=== PATIENT | female | born 1995 | race Caucasian/White ===

== ENCOUNTER 2017-01-24 12:03 | Emergency (ER) | payer OTHER ==
[2017-01-24 12:10] VITALS: RESP 16; O2SAT 95
[2017-01-24 13:21] LABS: % IMMATURE GRANULYOCYTES 0.1 % (0.0-1.1); ABSOLUTE IMMATURE GRANULOCYTES 0.01 10^3/uL (0.00-0.10); ADD DIFF? NO; ADD MORPH? NO; ADD SCAN? NO; ATYPICAL LYMPHOCYTE FLAG 10 (0-99); FRAGMENT RBC FLAG 0 (0-99); HEMOGLOBIN 13.2 g/dL (12.6-16.3); LEFT SHIFT FLG 0 (0-99); LIPEMIA HEMOLYSIS FLAG 90 (0-99); MEAN CELL HEMOGLOBIN 28.1 pg (27.9-34.1); MEAN CELL HEMOGLOBIN CONCENTR. 33.8 g/dL (32.4-36.7); MEAN PLATELET VOLUME 8.2 fL (8.7-11.7); PLATELET CLUMPS FLAG 20 (0-99); PLATELET COUNT 368 10^3/uL (150-400); RED CELL DISTRIBUTION WIDTH 13.1 % (11.5-15.2)
--- NOTE | 2017-01-24 13:25 | EDPHY ---
H & P Stated Complaint: started menstruation monday/pelvic cramping/l sided pain Time Seen by Provider: 01/24/17 13:00 HPI/ROS: CHIEF COMPLAINT: Exacerbation of chronic left pelvic pain HISTORY OF PRESENT ILLNESS: The patient presents to the ED with an acute exacerbation of chronic left pelvic pain. The patient reports she has been doing with the symptoms intermittently for the past year. They are typically worsened with her menstrual cycle. She describes sharp left lower quadrant pain. It has been present for several days. She reports normal menstrual flow. The patient was seen in the emergency department approximately 1 year ago with similar symptoms. At that time she underwent a pelvic ultrasound which was unremarkable. The left ovary was not visualized. A CT scan of the abdomen pelvis was performed which demonstrated no evidence of acute pelvic pathology. The patient did have a follow-up ultrasound performed which again demonstrated no evidence of obvious pathology a nonvisualized left ovary. The patient states that the symptoms today are fairly typical however more severe. She denies any dysuria. She denies additional acute complaints. REVIEW OF SYSTEMS: A comprehensive 10 point review of systems is otherwise negative aside from elements mentioned in the history of present illness. Source: Patient Exam Limitations: No limitations - Personal History LMP (Females 10-55): Now Current Tetanus/Diphtheria Vaccine: Yes - Medical/Surgical History Hx Asthma: Yes Hx Chronic Respiratory Disease: No Hx Diabetes: No Hx Cardiac Disease: No Hx Renal Disease: No Hx Cirrhosis: No Hx Alcoholism: No Hx HIV/AIDS: No Hx Splenectomy or Spleen Trauma: No Other PMH: tonsillitis-2013, depression, anxiety, asthma, marijuana. - Social History Smoking Status: Former smoker - Physical Exam Exam: General Appearance: Alert, no distress Eyes: Pupils equal and round no pallor or injection ENT, Mouth: Mucous membranes moist Respiratory: There are no retractions, lungs are clear to auscultation Cardiovascular: Regular rate and rhythm Gastrointestinal: Tenderness to palpation left lower quadrant, no CVA tenderness, no peritoneal signs Pelvic: Expected menstrual flow noted from cervical os, no cervical lesions or vaginal trauma appreciated, tenderness to palpation noted in the left adnexal area without obvious mass. No cervical motion tenderness. Neurological: A&O, normal motor function, normal sensory exam, normal cranial nerves Skin: Warm and dry, no rashes Musculoskeletal: Neck is supple nontender Extremities: symmetrical, full range of motion Constitutional: Initial Vital Signs Temperature (C) 36.8 C 01/24/17 12:08 Heart Rate 86 01/24/17 12:08 Respiratory Rate 16 01/24/17 12:08 Blood Pressure 123/56 H 01/24/17 12:08 O2 Sat (%) 95 01/24/17 12:08 O2 Delivery Mode Room Air Allergies/Adverse Reactions: latex Allergy (Intermediate, Verified 01/24/17 12:06) Rash Penicillins Allergy (Intermediate, Verified 01/24/17 12:06) Rash Home Medications: Medication Instructions Recorded Lexapro 12/29/15 Ventolin Hfa Inhaler 12/29/15 Escitalopram Oxalate 01/24/17 Hydrocodone/APAP 5/325 [[place] 1 - 2 each PO Q6 PRN #20 tab 01/24/17 5/325] Dania 28 Tablet 01/24/17 Medical Decision Making - Diagnostics Imaging Results: Imaging Impressions Pelvic/Renal Ultrasound 01/24/17 13:27 Impression: 1. Normal-appearing uterus retroverted and anteflexed. 2. The left ovary could not be positively identified. No dominant mass is seen from transabdominal or endovaginal approach. 3. Normal-appearing right ovary. Findings discussed with Jose Pittman M.D. at 14:58 hour, 01/24/2017. ED Course/Re-evaluation: The patient presents to the ED with an acute exacerbation of left pelvic pain. The patient underwent pelvic examination by myself which demonstrates no findings consistent with PID or tubo-ovarian abscess. The patient did have GC and chlamydia testing performed on endocervical swab. The patient's pelvic ultrasound demonstrates no evidence of any obvious abnormality. She has a chronically nonvisualized left ovary. The patient's urinalysis demonstrates no evidence of an infection. Given the sum total the patient's presentation with intermittent left pelvic pain for over a year, my suspicion for an acute torsion is low. I do feel it is reasonable to have the patient attempt to manage her symptoms with ibuprofen and [place]. The patient will be advised to follow up with our on-call obgyn nurse doctor for a recheck in the next 1-2 days. Differential Diagnosis: Differential diagnosis considered includes ovarian cyst, ovarian torsion, PID, tubo-ovarian abscess, dysmenorrhea - Data Points Laboratory Results: Laboratory Results 01/24/17 13:05 01/24/17 13:05 01/24/17 01/24/17 01/24/17 13:05 13:05 13:05 WBC RBC Hgb Hct MCV MCH MCHC RDW Plt Count MPV Neut % (Auto) Lymph % (Auto) Riley % (Auto) Eos % (Auto) Baso % (Auto) Nucleat RBC Rel Count Absolute Neuts (auto) Absolute Lymphs (auto) Absolute Monos (auto) Absolute Eos (auto) Absolute Basos (auto) Absolute Nucleated RBC Immature Gran % Immature Gran # Sodium Potassium Chloride Carbon Dioxide Anion Gap BUN Creatinine Estimated GFR Glucose Calcium Beta HCG, Qual NEGATIVE Urine Color YELLOW Urine Appearance CLEAR Urine pH 6.0 (5.0-7.5) Ur Specific [place] 1.013 (1.002-1.030) Urine Protein NEGATIVE (NEGATIVE) Urine Ketones NEGATIVE (NEGATIVE) Urine Blood 3+ H (NEGATIVE) Urine Nitrate NEGATIVE (NEGATIVE) Urine Bilirubin NEGATIVE (NEGATIVE) Urine Urobilinogen NEGATIVE EU EU (0.2-1.0) Ur Leukocyte Esterase NEGATIVE (NEGATIVE) Urine RBC 50-182 /hpf H /hpf (0-3) Urine WBC 1-3 /hpf /hpf (0-3) Ur Epithelial Cells TRACE /lpf /lpf (NONE-1+) Urine Bacteria TRACE /hpf H /hpf (NONE SEEN) Urine Mucus TRACE /lpf /lpf (NONE-1+) Urine Glucose NEGATIVE (NEGATIVE) C.trachomatis RNA (TMA) Pending N.gonorrhoeae RNA (TMA) Pending 01/24/17 01/24/17 13:05 13:05 WBC 7.30 10^3/uL 10^3/uL (3.80-9.50) RBC 4.70 10^6/uL 10^6/uL (4.18-5.33) Hgb 13.2 g/dL g/dL (12.6-16.3) Hct 39.0 % % (38.0-47.0) MCV 83.0 fL fL (81.5-99.8) MCH 28.1 pg pg (27.9-34.1) MCHC 33.8 g/dL g/dL (32.4-36.7) RDW 13.1 % % (11.5-15.2) Plt Count 368 10^3/uL 10^3/uL (150-400) MPV 8.2 fL L fL (8.7-11.7) Neut % (Auto) 55.5 % % (39.3-74.2) Lymph % (Auto) 33.6 % % (15.0-45.0) Riley % (Auto) 7.0 % % (4.5-13.0) Eos % (Auto) 3.0 % % (0.6-7.6) Baso % (Auto) 0.8 % % (0.3-1.7) Nucleat RBC Rel Count 0.0 % % (0.0-0.2) Absolute Neuts (auto) 4.05 10^3/uL 10^3/uL (1.70-6.50) Absolute Lymphs (auto) 2.45 10^3/uL 10^3/uL (1.00-3.00) Absolute Monos (auto) 0.51 10^3/uL 10^3/uL (0.30-0.80) Absolute Eos (auto) 0.22 10^3/uL 10^3/uL (0.03-0.40) Absolute Basos (auto) 0.06 10^3/uL 10^3/uL (0.02-0.10) Absolute Nucleated RBC 0.00 10^3/uL 10^3/uL (0-0.01) Immature Gran % 0.1 % % (0.0-1.1) Immature Gran # 0.01 10^3/uL 10^3/uL (0.00-0.10) Sodium 135 mEq/L mEq/L (134-144) Potassium 4.4 mEq/L mEq/L (3.5-5.2) Chloride 104 mEq/L mEq/L (97-110) Carbon Dioxide 24 mEq/l mEq/l (22-31) Anion Gap 7 mEq/L L mEq/L (8-16) BUN 11 mg/dL mg/dL (7-23) Creatinine 0.9 mg/dL mg/dL (0.6-1.0) Estimated GFR > 60 Glucose 77 mg/dL mg/dL (70-100) Calcium 9.0 mg/dL mg/dL (8.5-10.4) Beta HCG, Qual Urine Color Urine Appearance Urine pH Ur Specific [place] Urine Protein Urine Ketones Urine Blood Urine Nitrate Urine Bilirubin Urine Urobilinogen Ur Leukocyte Esterase Urine RBC Urine WBC Ur Epithelial Cells Urine Bacteria Urine Mucus Urine Glucose C.trachomatis RNA (TMA) N.gonorrhoeae RNA (TMA) Departure - Departure Disposition: Home, Routine, Self-Care Clinical Impression: Pelvic pain Condition: Good Instructions: Pelvic Pain in Women (ED) Additional Instructions: 1. Take Ibuprofen or Motrin 600 mg by mouth three times a day. 2. [place] as needed for severe pain 3. Please schedule a follow-up appointment with a pr intern you have been referred to. 4. Please contact the ED tomorrow at to check on your pending pelvic swabs. Referrals: Traci Garibay MD [Medical Doctor] - As per Instructions Prescriptions: Hydrocodone/APAP 5/325 [[place] 5/325] 1 - 2 each PO Q6 PRN #20 tab PRN Reason: for pain
[2017-01-24 13:32] LABS: COLOR YELLOW; LEUKOCYTE ESTERASE,URINE NEGATIVE (NEGATIVE); NITRITE,URINE NEGATIVE (NEGATIVE)
[2017-01-24 13:33] LABS: ANION GAP 7 mEq/L (8-16); CARBON DIOXIDE 24 mEq/l (22-31); CHLORIDE 104 mEq/L (97-110); CREATININE 0.9 mg/dL (0.6-1.0); GLOMERULAR FILTRATION RATE > 60; GLUCOSE 77 mg/dL (70-100); POTASSIUM 4.4 mEq/L (3.5-5.2); SODIUM 135 mEq/L (134-144)
[2017-01-24 13:36] LABS: BACTERIA TRACE /hpf (NONE SEEN); MUCUS TRACE /lpf (NONE-1+); RBC,URINE 50-182 /hpf (0-3)
[2017-01-24 15:46] VITALS: BP 105/71; PULSE 60; TEMP 98.8
[2017-01-25 13:11] LABS: CHLAMYDIA AMPLIFICATION GENPRB NEGATIVE (NEGATIVE)
== END 2017-01-24 15:45 | disposition home or self-care (01) ==
DX: R10.2 Pelvic and perineal pain (principal); J45.909 Unspecified asthma, uncomplicated; Z87.891 Personal history of nicotine dependence; Z91.040 Latex allergy status

== ENCOUNTER 2017-06-14 04:55 | Day surgery (SDC) | payer OTHER ==
[2017-06-14] MEDS ORDERED: LR 1,000 ML IV ONE (06:01)
[2017-06-14] MEDS ORDERED: LIDOCAINE 1% 2 ML INJ ID PRN (06:01)
[2017-06-14] MEDS ORDERED: MIDAZOLAM 2 MG/2 ML VIAL IVP ONE (06:52)
[2017-06-14] MEDS ORDERED: SILVER NITRATE APPLICATOR 1 APPL TP ONE (06:58)
[2017-06-14] MEDS ORDERED: BUPIVACAINE 0.25% 30 ML SDV ONE (06:58)
--- NOTE | 2017-06-14 06:59 | PDANEPAE ---
ANE History of Present Illness endometriosis ANE Past Medical History - Cardiovascular History Hx Hypertension: No Hx Arrhythmias: No Hx Chest Pain: No Hx Coronary Artery / Peripheral Vascular Disease: No Hx CHF / Valvular Disease: No Hx Palpitations: No - Pulmonary History Hx COPD: No Hx Asthma/Reactive Airway Disease: Yes Hx Recent Upper Respiratory Infection: No Hx Oxygen in Use at Home: No Hx Sleep Apnea: No Sleep Apnea Screening Result - Last Documented: Negative Pulmonary History Comment: ASTHMA TRIGGERED BY ALLERGIES,EXTREME COLD, EXERCISE - Neurologic History Hx Cerebrovascular Accident: No Hx Seizures: No Hx Dementia: No - Endocrine History Hx Diabetes: No Hypothyroid: No Hyperthyroid: No Obesity: yes, severe - Renal History Hx Renal Disorders: No - Liver History Hx Hepatic Disorders: No - Neurological & Psychiatric Hx Hx Neurological and Psychiatric Disorders: Yes Neurological / Psychiatric History Comment: OCD,GENERALIZED ANXIETY, DEPRESSION, PTSD - Cancer History Hx Cancer: No - Congenital Disorder History Hx Congenital Disorders: No - GI History GERD: no Hx Gastrointestinal Disorders: No - Other Health History Other Health History: HX ECZMA. - Chronic Pain History Chronic Pain: Yes (BILAT ROTATOR CUFF) - Surgical History Prior Surgeries: TONSILECTOMY,WISDOM TETH REMOVED ANE Review of Systems Review of systems is: negative Review of Systems: - Exercise capacity METS (RN): 4 METS ANE Patient History - Allergies Allergies/Adverse Reactions: oxycodone Allergy (Severe, Verified 06/01/17 15:32) Other-Enter Comments latex Allergy (Intermediate, Verified 01/24/17 12:06) Rash Penicillins Allergy (Intermediate, Verified 01/24/17 12:06) Rash - Home Medications Home medications: home medication list seen and reviewed Home Medications: Lexapro 12/29/15 [Last Taken 06/13/17 18:00] Ventolin Hfa Inhaler 12/29/15 [Last Taken 06/13/17] Dania 28 Tablet 01/24/17 [Last Taken 06/13/17 18:00] Hydrocodone/APAP 5/325 [[place] 5/325] 06/01/17 [Last Taken Unknown] - NPO status NPO Since - Liquids (Date): 06/13/17 NPO Since - Liquids (Time): 22:00 NPO Since - Solids (Date): 06/13/17 NPO Since - Solids (Time): 22:00 - Anes Hx Anes Hx: no prior problems - Smoking Hx Smoking Status: Former smoker - Family Anes Hx Family Hx Anesthesia Complications: NONE ANE Labs/Vital Signs - Vital Signs Blood Pressure: 114/76 Heart Rate: 86 Respiratory Rate: 16 O2 Sat (%): 94 Height: 170.18 cm Weight: 112.037 kg ANE Physical Exam - Airway Neck exam: FROM Mallampati Score: Class 1 Mouth exam: normal dental/mouth exam - Pulmonary Pulmonary: no respiratory distress - Cardiovascular Cardiovascular: regular rate and rhythym - ASA Status ASA Status: III ANE Anesthesia Plan Anesthesia Plan: general endotracheal anesthesia
[2017-06-14] MEDS ORDERED: ROCURONIUM 100 MG/10 ML VIAL ONE (07:04)
[2017-06-14] MEDS ORDERED: fentaNYL 100 MCG/2 ML INJ ONE ×3 (07:04→09:45)
[2017-06-14] MEDS ORDERED: PROPOFOL 200 MG/20 ML VIAL ONE ×3 (07:04→09:20)
[2017-06-14] MEDS ORDERED: SUGAMMADEX SODIUM 200 MG/2 ML VIAL IVP ONE (07:05)
[2017-06-14] MEDS ORDERED: ONDANSETRON 4 MG/2 ML VIAL ONE ×2 (07:05→09:53)
[2017-06-14] MEDS ORDERED: DEXAMETHASONE 4 MG/ML VIAL ONE (07:05)
[2017-06-14] MEDS ORDERED: LIDOCAINE 2% 5 ML SDV ONE (07:05)
[2017-06-14] MEDS ORDERED: KETOROLAC 30 MG/1 ML SDV ONE (07:05)
--- NOTE | 2017-06-14 07:27 | PDGENHP ---
History & Physical Chief Complaint: Pelvic pain, dysmenorrhea History of Present Illness: 21 yo G0 with long-standing significant dysmenorrhea and pelvic pain, dyspareunia. Met with her in the office to discuss etiologies. Moving forward with diagnostic laparoscopy to rule-out and possibly treat endometriosis. Placing Mirena IUD in the OR while still asleep. Normal pelvic US 01/2017 that showed normal uterus, non-visible right ovary, normal left ovary - no obvious endometrioma. Pertinent Past, Social, Family History: Non-contributory - No prior abdominal surgeries. Relevant Physical Exam: NAD, Heart is RRR, Lungs CTAB Assessment & Plan Assessment: Preop; Diagnostic laparoscopy w possible excision and/or fulguration of endometriosis. Insertion of Mirena IUD. Plan: Consents signed in person with me in clinic. Routine preop orders. Weight-based Ancef for preop abx. No need for heparin. I will bring the IUD with me from my office.
[2017-06-14] MEDS ORDERED: ceFAZolin 2 GM/SWFI 2 GM/20 ML SYR IVP ONE (07:29)
[2017-06-14] MEDS ORDERED: ceFAZolin 1 GM VIAL ONE ×2 (08:12)
[2017-06-14] MEDS ORDERED: HYDROmorphONE/DILAUDID 1 MG/ML INJ IVP PRN (08:50)
[2017-06-14] MEDS ORDERED: NALOXONE HCL 0.4 MG/ML INJ IVP PRN (08:50)
[2017-06-14] MEDS ORDERED: ONDANSETRON 4 MG/2 ML VIAL IVP PRN (08:50)
[2017-06-14] MEDS ORDERED: METOCLOPRAMIDE 10 MG/2 ML VIAL IVP PRN (08:50)
[2017-06-14] MEDS ORDERED: LR 500 ML IV PRN (08:50)
[2017-06-14] MEDS ORDERED: ACETAMINOPHEN 500 MG TAB PO PRN (08:50)
[2017-06-14] MEDS ORDERED: PROMETHAZINE HCL 25 MG/ML INJ IVP PRN (08:50)
--- NOTE | 2017-06-14 08:52 | POSTANESTH ---
Post Anesthetic Evaluation Cardiovascular Status: Normal, Stable Respiratory Status: Normal, Stable Level of Consciousness/Mental Status: Can Participate in Eval Pain Control: Adequate, Prn Tx Ordered Nausea/Vomiting Control: Adequate, Prn Tx Ordered Complications Possibly Related to Anesthesia: None Noted
--- NOTE | 2017-06-14 09:37 | SUROPNOTE ---
[facility] Operative Report - Surgery Date of Operation: 06/14/17 Surgeon: Rehan Ledezma [employer] Operator: None Anesthesia: GET(General Endotracheal) Pre-op Diagnosis: Pelvic pain, dysmenorrhea Post-op Diagnosis: Same, Stage I endometriosis Procedure: Diagnostic lap, excision and fulguration of endometriosis, Mirena insertion Findings: Stage I endometriosis with small lesions on bilateral uterosacral ligaments, normal appendix, normal large and small bowel, normal gallbladder and visible aspects of liver and greater curvature of stomach Inf/Abcess present in the surg proc area at time of surgery?: No EBL: Minimal Complications: None Specimen(s): Peritoneal biopsy Technique: The patient was brought to the operating room where she was ergonomically positioned in low lithotomy position in Jay stirrups. General anesthesia was established without issue. The arms were tucked at the patients side with care to not generate any pressure points. She was prepped and draped in standard fashion after a time-out was performed. Weight-based Ancef was given prior to skin incision. A Hulka tenaculum was placed within the uterus to assist with uterine manipulation. A srinivasan catheter was placed under sterile conditions with care taken for latex free due to patients allergy. A 5mm vertical incision was made in the base of the umbilicus after injection of local anesthetic. The anterior abdominal wall was lifted as the Veress needle was carefully inserted into the abdomen at a 45% angle from vertical. Intraabdominal placement was confirmed with hanging drop test and low initial insufflation pressures. Once the abdomen was adequately insufflated with CO2 gas the Veress was removed and a 5mm Optiview non-bladed trocar was introduced into the abdomen without complication under direct visualization with the camera within the trocar. Once inside a brief scan of the abdomen revealed no injuries upon entry. At this point 2 additional 5mm ports were placed in the bilateral lower quadrants after injection of local. Additional pictures were taken of intra-abdominal organs/structures as noted in findings. There were small foci of endometriosis - powderburn lesions and 1-2mm brown/red endo foci - essentially located on either uterosacral ligaments and in the posterior culdesac. The largest lesion was grasped with [place] and pulled away from underlying tissue and Endoshears used to remove peritoneal biopsy specimen. This was sent for permanent path. The remaining endo spots were fulgurated with monopolar cautery using the Endoshears. To conclude the pelvis was copiously irrigated and complete hemostasis was noted , even with lowered intra-abdominal pressure. All trocars were removed, gas was allowed to escape the abdomen, and skin incisions closed with single subcuticular stitches of 4-0 monocryl and then covered with Dermabond. As a final step I went below to insert the Mirena IUD. The Hulka was removed and a single tooth tenaculum placed on the anterior lip of the cervix. The uterus sounded easily to 8cm. Mirena device opened and inserted at the fundus per protocol without complication. Strings trimmed to 2cm. The pt was extubated uneventfully and taken to the PACU in stable condition. Lap, needle and instrument counts were announced as correct at the conclusion of the case. I was scrubbed and present for the entire procedure.
[2017-06-14] MEDS: fentaNYL 100 MCG/2 ML INJ IVP PRN ×2 (09:49→10:00)
[2017-06-14] MEDS ORDERED: ALBUTEROL 3 ML DEYVIAL ONE (09:58)
[2017-06-14 10:14] VITALS: TEMP 98.2
[2017-06-14] MEDS ORDERED: HYDROCODONE/APAP 5/325 TAB ONE ×2 (10:32→11:47)
[2017-06-14] MEDS: HYDROCODONE/APAP 5/325 TAB PO PRN ×2 (10:40→11:48)
[2017-06-14 11:51] VITALS: BP 124/66; PULSE 103; RESP 14; O2SAT 92
[2017-06-14] MEDS ORDERED: ALBUTEROL 3 ML DEYVIAL IH ONE (13:00)
== END 2017-06-14 11:59 | disposition home or self-care (01) ==
LOC: FSGY 04:55
PROVIDERS: ATTEND Obstetrics & Gynecology
PROC: 0UH97HZ Insertion of Contraceptive Device into Uterus, Via Natural or Artificial Opening (ICD-10-PCS; principal; 2017-06-14 07:15)
PROC: 0U5F4ZZ Destruction of Cul-de-sac, Percutaneous Endoscopic Approach (ICD-10-PCS; principal; 2017-06-14 07:15)
PROC: 0DBW4ZX Excision of Peritoneum, Percutaneous Endoscopic Approach, Diagnostic (ICD-10-PCS; principal; 2017-06-14 07:15)
DX: N80.3 Endometriosis of pelvic peritoneum (principal); R10.2 Pelvic and perineal pain; N94.6 Dysmenorrhea, unspecified; N94.10 Unspecified dyspareunia; Z30.430 Encounter for insertion of intrauterine contraceptive device; Z84.2 Family history of other diseases of the genitourinary system
CPT/HCPCS: J0171; J0690; J1100; J1885; J2250; J2405; J2704; J3010; J7613